=== PATIENT | male | born 1940 | race Caucasian/White ===

== ENCOUNTER 2018-02-07 14:34 | Emergency (ER) | payer MEDICARE, OTHER ==
[~2018-02-07 14:34] MED LIST: ACAR25TA PO; ASP325 PO; ATEN-65 PO; GLY5 PO; INSULIN SQ; LISI-374 PO; METF-420 PO; MOD PO; SIMV-44 PO; [UNRECOGNIZED DRUG - CODE] PO; [UNRECOGNIZED DRUG - CODE] PO; insulin SQ
--- NOTE | 2018-02-07 15:00 | ER Report ---
History and Physical Time Seen By MD: 14:50 Hx. of Stated Complaint: patient reports right sided flank and abdominal pain HPI/ROS CHIEF COMPLAINT: Back pain HISTORY OF PRESENT ILLNESS: Patient is a 77-year-old male coming by his , who presents the ED with complaint of back pain for the past 2 weeks. He states that he did see his primary care provider about one week ago and was given some anti-inflammatory medication. He states that this has helped some but noticed some worsening pain and wanted to get this checked. He states the pain can sometimes radiate into the right lower abdomen. He denies any dysuria, hematuria , increased urinary frequency. He has not noted any nausea, vomiting, diarrhea. He denies any chest pain or palpitations. He has not noted any shortness of breath. He states that he has had issues with arthritic pain in the past and has a 3 of a right rotator cuff surgery as well as bilateral knee replacements. He states his also had issues with his back in the past. REVIEW OF SYSTEMS: Constitutional: No fever, no chills. Cardiovascular: No chest pain, no palpitations. Respiratory: No cough, no shortness of breath. Gastrointestinal: No abdominal pain, no vomiting. Genitourinary: See history of present illness. Musculoskeletal: See history of present illness. Skin: No rashes. Neurological: No headache. Allergies: Coded Allergies: No Known Drug Allergies (Verified , 07/22/16) Uncoded Allergies: NKDA (Allergy, Mild, 02/10/10) Home Meds Reported Medications [insulin] No Conflict Check, 8 UNITS SQ ACHS 07/22/16 Cholesterol (CHOLESTEROL) 100 Gm Powder, PO HS 07/22/16 [Insulin] No Conflict Check, 60 UNITS SQ elana, 0 Refills 09/13/11 Lisinopril (Lisinopril) 40 Mg Tablet, 40 MG PO DAILY, 0 Refills 09/13/11 Amiloride/Hctz (Moduretic ) 1 Ea Tab, 1 EA PO QDAY, 0 Refills 02/10/10 Atenolol (Atenolol) 25 Mg Tablet, 25 MG PO DAILY, 0 Refills 09/13/11 Metformin Hcl (Glucophage) 1,000 Mg Tablet, 1000 MG PO BIDBS, 0 Refills 09/13/11 Reviewed Nurses Notes: Yes Old Medical Records Reviewed: Yes Hx Smoking: No Constitutional Vital Sign - Last 24 Hours 02/07/18 14:49 Temp 98.5 Pulse 76 Resp 20 B/P (MAP) 161/88 Pulse Ox 95 O2 Delivery Room Air Physical Exam General Appearance: The patient is alert, has no immediate need for airway protection and no signs of toxicity. Patient appears to be in no acute distress. Eyes: Pupils equal and round no pallor or injection. ENT, Mouth: Mucous membranes are moist. Respiratory: There are no retractions, lungs are clear to auscultation. Cardiovascular: Regular rate and rhythm. Gastrointestinal: Abdomen is soft and non tender, no masses, bowel sounds normal in all 4 quadrants. Skin: Warm and dry, no rashes. Musculoskeletal: Neck is supple non tender. There is right paravertebral lumbar tenderness with palpation. This is around L4 and L5 area. No CVA tenderness noticed bilaterally with percussion. DIFFERENTIAL DIAGNOSIS: After history and physical exam differential diagnosis was considered for back pain including but not limited to muscular pain, herniated disc, spine fracture, intra-abdominal causes and urinary tract infection. Medical Decision Making Data Points Result Diagram: 02/07/18 1510 02/07/18 1510 Laboratory Hematology Test 02/07/18 15:04 02/07/18 15:10 Urine Color Yellow Urine Clarity Clear Urine pH 6.0 pH (4.8-9.5) Urine Specific Pelican 1.013 Urine Protein Negative mg/dL (NEGATIVE) Urine Glucose (UA) Negative mg/dL (NEGATIVE) Urine Ketones Negative mg/dL (NEGATIVE) Urine Blood Negative (NEGATIVE) Urine Nitrite Negative (NEGATIVE) Urine Bilirubin Negative (NEGATIVE) Urine Urobilinogen 2.0 mg/dL (0.2-1.9) Urine Leukocyte Esterase Negative (NEGATIVE) Urine RBC 1 /HPF (0-2/HPF) Urine WBC <1 /HPF (0-5/HPF) Urine Squamous Epithelial Cells None /LPF (</=FEW) Urine Bacteria Negative /HPF (NONE-FEW) Urine Mucus None /HPF (NONE-FEW) Red Blood Count 5.00 M/uL (4.00-5.60) Mean Corpuscular Volume 94.4 fL (80.0-96.0) Mean Corpuscular Hemoglobin 32.9 pg (26.0-33.0) Mean Corpuscular Hemoglobin Concent 34.9 g/dL (32.0-36.0) Red Cell Distribution Width 13.6 % (11.5-14.5) Mean Platelet Volume 7.4 fL (7.2-11.1) Neutrophils (%) (Auto) 62.7 % (39.4-72.5) Lymphocytes (%) (Auto) 23.2 % (17.6-49.6) Monocytes (%) (Auto) 9.4 % (4.1-12.4) Eosinophils (%) (Auto) 3.7 % (0.4-6.7) Basophils (%) (Auto) 1.0 % (0.3-1.4) Nucleated RBC Relative Count (auto) 0.2 /100WBC Neutrophils # (Auto) 4.6 K/uL (2.0-7.4) Lymphocytes # (Auto) 1.7 K/uL (1.3-3.6) Monocytes # (Auto) 0.7 K/uL (0.3-1.0) Eosinophils # (Auto) 0.3 K/uL (0.0-0.5) Basophils # (Auto) 0.1 K/uL (0.0-0.1) Nucleated RBC Absolute Count (auto) 0.02 K/uL Sodium Level 138 mmol/L (137-145) Potassium Level 4.2 mmol/L (3.5-5.0) Chloride Level 100 mmol/L (98-107) Carbon Dioxide Level 25 mmol/L (22-30) Blood Urea Nitrogen 21 mg/dl (9-21) Creatinine 1.00 mg/dl (0.66-1.25) Glomerular Filtration Rate Calc > 60.0 Random Glucose 194 mg/dl (75-110) Calcium Level 10.3 mg/dl (8.4-10.2) Total Bilirubin 0.7 mg/dl (0.2-1.3) Aspartate Amino Transf (AST/SGOT) 32 U/L (0-35) Alanine Aminotransferase (ALT/SGPT) 33 U/L (0-56) Alkaline Phosphatase 121 U/L (0-126) Total Protein 7.0 gm/dl (6.3-8.2) Albumin 4.0 g/dl (3.5-5.0) Chemistry Test 02/07/18 15:04 02/07/18 15:10 Urine Color Yellow Urine Clarity Clear Urine pH 6.0 pH (4.8-9.5) Urine Specific Pelican 1.013 Urine Protein Negative mg/dL (NEGATIVE) Urine Glucose (UA) Negative mg/dL (NEGATIVE) Urine Ketones Negative mg/dL (NEGATIVE) Urine Blood Negative (NEGATIVE) Urine Nitrite Negative (NEGATIVE) Urine Bilirubin Negative (NEGATIVE) Urine Urobilinogen 2.0 mg/dL (0.2-1.9) Urine Leukocyte Esterase Negative (NEGATIVE) Urine RBC 1 /HPF (0-2/HPF) Urine WBC <1 /HPF (0-5/HPF) Urine Squamous Epithelial Cells None /LPF (</=FEW) Urine Bacteria Negative /HPF (NONE-FEW) Urine Mucus None /HPF (NONE-FEW) White Blood Count 7.4 k/uL (4.5-11.0) Red Blood Count 5.00 M/uL (4.00-5.60) Hemoglobin 16.5 g/dL (14.0-18.0) Hematocrit 47.2 % (42.0-52.0) Mean Corpuscular Volume 94.4 fL (80.0-96.0) Mean Corpuscular Hemoglobin 32.9 pg (26.0-33.0) Mean Corpuscular Hemoglobin Concent 34.9 g/dL (32.0-36.0) Red Cell Distribution Width 13.6 % (11.5-14.5) Platelet Count 163 K/uL (150-450) Mean Platelet Volume 7.4 fL (7.2-11.1) Neutrophils (%) (Auto) 62.7 % (39.4-72.5) Lymphocytes (%) (Auto) 23.2 % (17.6-49.6) Monocytes (%) (Auto) 9.4 % (4.1-12.4) Eosinophils (%) (Auto) 3.7 % (0.4-6.7) Basophils (%) (Auto) 1.0 % (0.3-1.4) Nucleated RBC Relative Count (auto) 0.2 /100WBC Neutrophils # (Auto) 4.6 K/uL (2.0-7.4) Lymphocytes # (Auto) 1.7 K/uL (1.3-3.6) Monocytes # (Auto) 0.7 K/uL (0.3-1.0) Eosinophils # (Auto) 0.3 K/uL (0.0-0.5) Basophils # (Auto) 0.1 K/uL (0.0-0.1) Nucleated RBC Absolute Count (auto) 0.02 K/uL Glomerular Filtration Rate Calc > 60.0 Calcium Level 10.3 mg/dl (8.4-10.2) Total Bilirubin 0.7 mg/dl (0.2-1.3) Aspartate Amino Transf (AST/SGOT) 32 U/L (0-35) Alanine Aminotransferase (ALT/SGPT) 33 U/L (0-56) Alkaline Phosphatase 121 U/L (0-126) Total Protein 7.0 gm/dl (6.3-8.2) Albumin 4.0 g/dl (3.5-5.0) Urinalysis Test 02/07/18 15:04 Urine Color Yellow Urine Clarity Clear Urine pH 6.0 pH (4.8-9.5) Urine Specific Pelican 1.013 Urine Protein Negative mg/dL (NEGATIVE) Urine Glucose (UA) Negative mg/dL (NEGATIVE) Urine Ketones Negative mg/dL (NEGATIVE) Urine Blood Negative (NEGATIVE) Urine Nitrite Negative (NEGATIVE) Urine Bilirubin Negative (NEGATIVE) Urine Urobilinogen 2.0 mg/dL (0.2-1.9) Urine Leukocyte Esterase Negative (NEGATIVE) Urine RBC 1 /HPF (0-2/HPF) Urine WBC <1 /HPF (0-5/HPF) Urine Squamous Epithelial Cells None /LPF (</=FEW) Urine Bacteria Negative /HPF (NONE-FEW) Urine Mucus None /HPF (NONE-FEW) EKG/Imaging Imaging Lumbar Spine Xrays: IMPRESSION: 1. Extensive spondylotic changes lumbar spine as described above Extensive vascular calcifications Report Dictated By: Alina Carlton MD at 02/07/2018 3:53 PM Report E-Signed By: Alina Carlton MD at 02/07/2018 3:55 PM ED Course/Re-evaluation ED Course Nat all labs and lumbar spine x-rays with patient. He does have some spondylitic/arthritic changes noted in his lumbar spine. Given the location of his pain in the normal labs this likely is Muskoloskeletal pain. Advised him to continue his current medication from his primary care provider for this. He should follow-up with primary care provider or orthospine. Decision to Disposition Date: Feb 07, 2018 Decision to Disposition Time: 16:07 Depart Departure Latest Vital Signs Vital Signs Date Time Temp Pulse Resp B/P (MAP) Pulse Ox O2 Delivery O2 Flow Rate FiO2 02/07/18 14:49 98.5 76 20 161/88 95 Room Air Impression: Primary Impression: Lumbar pain Condition: Improved Disposition: HOME OR SELF-CARE Referrals: PHILIPPE TSE MD (PCP) Patient Instructions: Acute Low Back Pain (ED) Additional Instructions: Rest, ice, heat. May take Tylenol for pain relief as needed. Follow-up with primary care provider in 2-3 days. If having any worsening or concerning symptoms may return to the emergency department. SPIKE CHAMBERS PA-C Feb 07, 2018 15:00
[2018-02-07 15:21] LABS: PLATELET COUNT, AUTOMATED 163 K/uL (150-450)
--- NOTE | 2018-02-07 15:59 | RADIOLOGY IMAGING REPORT ---
FACILITY: [facility] PATIENT NAME: Keon Martinez : 1940 MR: [id number] V: [id number] EXAM DATE: ORDERING PHYSICIAN: SPIKE CHAMBERS TECHNOLOGIST: Location: [facility] [place] Patient: Keon Martinez : 1940 Visit/Account:[id number] Date of Sevice: 02/07/2018 Exam type: LUMBAR SPINE 2 OR 3 VIEW History: lumbar back pain Comparison: None. Findings: There are five nonrib-bearing lumbar-type vertebral bodies present. Anterior osteophytes are noted f rom T11 through S1 there is moderate disc space narrowing at L3-4. There is Severe disc space narrow ing and degenerative facet joint changes at L4-5 and L5-S1. There is no evidence of acute fractures or subluxations. Extensive vascular calcification is noted in the abdominal aorta and branch vessels IMPRESSION: 1. Extensive spondylotic changes lumbar spine as described above Extensive vascular calcifications Report Dictated By: Alina Carlton MD at 02/07/2018 3:53 PM Report E-Signed By: Alina Carlton MD at 02/07/2018 3:55 PM WSN:[email or web address]
[2018-02-07 16:11] VITALS: BP 130/74
== END 2018-02-07 16:16 | disposition home or self-care (01) ==
LOC: ER 14:58
DX: M47.896 Other spondylosis, lumbar region (principal); M54.5 Low back pain
CPT/HCPCS: 36415; 72100; 81001; 82040; 82247; 82310; 82374; 82435; 82565; 82947; 84075; 84132; 84155; 84295; 84450; 84460; 84520; 85025; 99283

== ENCOUNTER → 2018-04-27 | Outpatient (CLI) | payer MEDICARE, OTHER ==
--- NOTE | 2018-04-27 14:31 | RADIOLOGY IMAGING REPORT ---
[place] [facility] [place]IENT NAME: Keon Martinez : 1940 MR: [id number] V: [id number] EXAM DATE: ORDERING PHYSICIAN: PHILIPPE TSE TECHNOLOGIST: Location: [facility] Patient: Keon Martinez : 1940 Visit/Account:[id number] Date of Sevice: 04/27/2018 CT chest without contrast Indication: Lung nodule Comparison: CT chest from 04/06/2017. Technique: Axial CT images are obtained through the chest without administration of IV contrast. Reformatted coronal and sagittal images were reviewed. One of the following dose optimization techniques was utilized in the performance of this exam: autom ated exposure control; adjustment of the mA and/or kV according to the patient's size; or use of an i terative reconstruction technique. Specific details can be referenced in the facility's radiology CT exam operational policy. Findings: The nonopacified cardiac chambers and great vessels are grossly unremarkable. There is no mediastinal hematoma and there is no pathologic mediastinal adenopathy seen. Moderate vascular calcifications of the coronary arteries again seen as well as the nonaneurysmal tho racic aorta. The airways are patent. No evidence of pneumothorax or pleural effusion. Stable appearance of a 9.6 x 6.8 mm nodule within the right upper lobe. Current Fleischner Society recommendation for incidental pulmonary nodules > 8 mm (average of length and width) is follow-up CT at 3, 9 and 24 months, PET and/or biopsy. (Maxwell H, Angelito JH, [place] G, et al. Guidelines for management of small pulmonary nodules detected on CT scans: a statement from the Fleischner Society. Radiology. 2005; 237: 395-400.) Tiny micronodule within the anterior left upper lobe on image 46 of series 3 appears stable compared to prior exam and measures approximately 2.6 mm. Limited views of the abdomen again show a simple appearing cyst within the anterior left lobe of the liver. Anterior osteophytosis spanning the thoracic spine levels noted. IMPRESSION: 1. No acute cardiothoracic abnormality 2. Stable nodule within the right upper lobe as described above. Report Dictated By: Arjun Nolen MD at 04/27/2018 2:22 PM Report E-Signed By: Arjun Nolen MD at 04/27/2018 2:27 PM WSN:[email or web address]
== END ==
LOC: CT 03:43
PROVIDERS: ATTEND Family Medicine
DX: R91.1 Solitary pulmonary nodule (principal)
CPT/HCPCS: 71250